=== PATIENT | female | born 1965 | race Caucasian/White ===

== ENCOUNTER 2017-01-02 20:29 | Emergency (ER) | payer BC ==
[~2017-01-02] VITALS: Ht 167.6 cm; Wt 82.5 kg
[~2017-01-02 20:29] MED LIST: CLARITIN10 MG PO; METFORMIN HCL500 MG PO; VITAMIN B-650 M1 PO
[2017-01-02 21:43] LABS: ADD MIUA? YES; BILIRUBIN NEGATIVE; BLOOD LARGE; COLOR RED ((YELLOW)); GLUCOSE (STRIP) NEGATIVE; KETONES NEGATIVE; LEUKOCYTES TRACE; NITRITE NEGATIVE; PH, URINE 7.5 (5-8); PROTEIN (STRIP) 30; SPECIFIC GRAVITY 1.005 (1.000-1.030); UROBILINOGEN 0.2 MG/DL (0.2-1.0)
[2017-01-02 21:57] LABS: BACTERIA 1+ /HPF; CASTS NONE SEEN /LPF; CRYSTALS NONE SEEN; EPITHELIAL CELLS RARE /HPF; MUCUS TRACE /LPF; UCUL ADDED? NO
[2017-01-02] MEDS ORDERED: PYRIDIUM200 MG PO (23:00)
[2017-01-02] MEDS ORDERED: MACROBID100 MG PO (23:00)
[2017-01-02 23:52] VITALS: BP 156/67
== END 2017-01-02 23:55 | disposition home or self-care (01) ==
LOC: EXP 20:29 → EME 20:29 → EXP 23:55
DX: N39.0 Urinary tract infection, site not specified (principal); E11.9 Type 2 diabetes mellitus without complications
CPT/HCPCS: 81003; 99281; 99284